=== PATIENT | male | born 1975 | race Caucasian/White ===

== ENCOUNTER 2019-12-27 07:23 | Outpatient (CLI) | payer SELFPAY, OTHER ==
[2019-12-27 14:09] LABS: #Basophils 0.1 thou/uL (0.0-0.2); #Eosinphils 0.2 thou/uL (0.0-0.7); #Lymphocytes 1.6 thou/uL (1.20-3.40); #Monocytes 0.8 thou/uL (0.11-0.59); #Neutrophils 5.6 thou/uL (1.40-6.50); %Basophils 0.8 % (0.0-1.0); %Eosinophils 2.6 % (0.0-10.0); %Lymphocytes 19.3 % (21.0-51.0); %Monocytes 9.5 % (0.0-10.0); %Neutrophils 67.9 % (42.0-75.0); Hemoglobin 18.1 g/dL (14.0-18.0); Mean Corpuscular Hemoglobin 30.9 pg (27.0-31.0); Mean Corpuscular Volume 91.1 fL (78.0-98.0); Mean Platelet Volume 7.8 fL (7.4-10.4); Platelet Count 206 thou/uL (130-400); RBC Distribution Width 11.2 % (11.5-14.5); Red Blood Cell (RBC) Count 5.84 mill/uL (4.70-6.10); White Blood Cell (WBC) Count 8.3 thou/uL (4.8-10.8)
[2019-12-27 15:02] LABS: Anion Gap 14 mmol/L (10-20); BUN (Urea Nitrogen) 32 mg/dL (8.9-20.6); Calc. Creatinine Clearance 0 mL/min (70-130); Calcium 9.5 mg/dL (7.8-10.44); Carbon Dioxide 25 mmol/L (22-29); Chloride 104 mmol/L (98-107); Estimated GFR-MDRD 70; Glucose 90 mg/dL (70-105); Potassium 4.4 mmol/L (3.5-5.1); Sodium 139 mmol/L (136-145)
--- NOTE | 2019-12-28 07:06 | EKG ---
Test Reason : Blood Pressure : / mmHG Vent. Rate : 086 BPM Atrial Rate : 086 BPM P-R Int : 162 ms QRS Dur : 092 ms QT Int : 332 ms P-R-T Axes : 071 026 042 degrees QTc Int : 397 ms Normal sinus rhythm Normal ECG No previous ECGs available Confirmed by DR. Samantha RIBERA ([id number]) on 12/28/2019 7:06:25 AM Referred By: DOMONIQUE Confirmed By:DR. Samantha RIBERA
[2019-12-28 11:54] LABS: SARS-CoV-2 MS2 Positive; SARS-CoV-2 N Gene Negative; SARS-CoV-2 S Gene Negative; SARS-CoV-2 by NAA Not Detected (NotDetected); SARS-CoV-2 orf1ab Negative
== END 2019-12-27 07:24 | disposition home or self-care (01) ==
LOC: LABBT 07:23
PROVIDERS: ATTEND Orthopaedic Surgery
DX: Z01.818 Encounter for other preprocedural examination (principal); Z20.828 Contact with and (suspected) exposure to other viral communicable diseases; M75.101 Unspecified rotator cuff tear or rupture of right shoulder, not specified as traumatic
CPT/HCPCS: 80048; 85025; 87635; 93005; 93010; U0003

== ENCOUNTER 2019-12-30 06:05 | Day surgery (SDC) | payer OTHER ==
[2019-12-28 11:55] VITALS: BMI 27.3
[2019-12-30] MEDS ORDERED: Midazolam HCl 2 mg/2 ml Vial ONE ×2 (06:37→07:10)
[2019-12-30] MEDS ORDERED: Fentanyl 100 MCG/2 ML VIAL ONE ×2 (06:38→07:10)
[2019-12-30] MEDS ORDERED: Lidocaine 1% (PF) 30 ML VIAL ONE (06:57)
[2019-12-30] MEDS ORDERED: Sodium Chloride 0.9% 10 ML ONE (06:57)
[2019-12-30] MEDS ORDERED: Ropivacaine 0.2% 550 ML 550 ML NERVE BLCK SCH (07:30)
[2019-12-30] MEDS ORDERED: Fentanyl 100 MCG/2 ML VIAL IV PRN (07:30)
[2019-12-30] MEDS ORDERED: Zolpidem Tartrate 5 MG TAB PO PRN (07:30)
[2019-12-30] MEDS ORDERED: Ondansetron PF 4 MG/2 ML Vial IVP PRN (07:30)
[2019-12-30] MEDS ORDERED: Promethazine HCl 25 MG/ML VIAL IM PRN (07:30)
[2019-12-30] MEDS ORDERED: HYDROcodone/Acetaminophen 5/325 mg Tablet PO PRN ×2 (07:30)
[2019-12-30] MEDS ORDERED: traMADol HCl 50 MG TAB PO PRN ×2 (07:30)
[2019-12-30] MEDS ORDERED: Bupivacaine/Epinephrine 0.25% 30 ML VIAL ONE (07:52)
[2019-12-30] MEDS ORDERED: SUGAMMADEX SODIUM 200 MG/2 ML VIAL ONE (09:34)
[2019-12-30] MEDS ORDERED: Ropivacaine 0.5% HCl/PF (150 MG/30 ML VIAL) ONE (10:40)
[2019-12-30] MEDS ORDERED: Ropivacaine 0.2% HCl/PF (40 MG/20 ML VIAL) ONE (10:40)
[2019-12-30] MEDS ORDERED: Lidocaine 1% PF 5 ML VIAL ONE (10:40)
[2019-12-30] MEDS ORDERED: EPHEDRINE 25 MG/5 ML SYRINGE ONE (10:40)
[2019-12-30] MEDS ORDERED: PHENYLEPHRINE-NS 100 MCG/ML 10 ML SYRINGE ONE (10:40)
[2019-12-30] MEDS ORDERED: Ondansetron PF 4 MG/2 ML Vial ONE (10:40)
[2019-12-30] MEDS ORDERED: PROPOFOL 200 MG/20 ML VIAL ONE (10:40)
[2019-12-30] MEDS ORDERED: Rocuronium Bromide 10 MG/ML (10ML VIAL) ONE (10:40)
--- NOTE | 2020-01-01 09:51 | OP ---
DATE OF PROCEDURE: 12/30/2019 PREOPERATIVE DIAGNOSES: 1. Right shoulder supraspinatus rotator cuff tear. 2. Degenerative SLAP lesion as well as associated intratendinous tearing of the biceps. POSTOPERATIVE DIAGNOSES: 1. Right shoulder supraspinatus rotator cuff tear. 2. Degenerative SLAP lesion as well as associated intratendinous tearing of the biceps. 3. Partial leading edge tear of subscapularis. PROCEDURES PERFORMED: 1. Right shoulder arthroscopy with arthroscopic rotator cuff repair. 2. Open biceps tenodesis. HOME HEALTH AIDE: Jose C Cordova PA-C. The assistant cook surgeon was present throughout the approach, fixation, and closure of the open biceps tenodesis. ESTIMATED BLOOD LOSS: Approximately, 50 mL. COMPLICATIONS: None. ANESTHESIA: He had a general anesthetic as well as a preoperative block. IMPLANTS: We used one triple-loaded titanium rotator cuff anchor. We used a 4.75 BioComposite SwiveLock for a double-row repair and we used a 7 x 23 BioComposite Bio-Tenodesis screw for biceps tenodesis. DISPOSITION: He did go to recovery room in stable condition. INDICATIONS: A 44-year-old male, who has been having problems with his right shoulder for quite some time. MRI was performed and he was found to have a full-thickness cuff tear as well as tearing of his biceps tendon. DESCRIPTION OF PROCEDURE: After all appropriate consent forms were explained and signed, Darryn was taken to the operative room and at this time was given general anesthetic. Once the level of anesthesia was appropriate, he was rolled into the left lateral decubitus position with all bony prominences were well padded. Axillary roll was placed underneath the left axilla and a barrientos bag was inflated to hold it in this position. The right arm was taken through full range of motion and was then suspended with 15 pounds of weight in standard arthroscopic fashion. The right shoulder and upper extremity were then prepped and draped in standard surgical fashion. Bony anatomical landmarks were then drawn out and at this time, the subacromial space was infiltrated with Marcaine with epinephrine. Posterior portal was then established, and the scope was placed into the shoulder joint. Anterior working portal was then made using a needle localization technique. Diagnostic arthroscopy commenced at this time. There was a leading edge tear of the subscapularis with some surrounding synovitis, this was debrided with a shaver. The supraspinatus tendon was found to be torn directly behind the biceps tendon, this was debrided at this time from the inside. This was noted to be a full- thickness tear at this time. The articular cartilage of the glenoid and humerus were in good condition. No loose bodies were noted in the axillary pouch. The superior labrum was found to be fairly atretic with some loose flaps. These were gently taken down with the shaver. There was a fair amount of synovitic change in the joint and the SERFAS energy was introduced and these areas were coagulated to prevent postop bleeding. At this time, an 18-gauge needle was introduced into the shoulder joint through the biceps tendon and a stitch was placed through the biceps tendon at this time. Arthroscopic scissors were used to cut the tendon off the superior labrum. This area was debrided with a shaver. Once this was done, we then turned our attention to the subacromial space. The scope was redirected to the subacromial space and at this time, lateral working portal was made. Diagnostic arthroscopy commenced and once removing the bursa, we confirmed full-thickness rotator cuff tear. At this time, the soft tissue was removed from the undersurface of the acromion, but no bony decompression was performed as no significant anterior inferior spur was noted. Soft tissue was removed from our greater tuberosity in the area of the tear. Shaver was introduced to gently decorticate this area. Edges were smoothed up and freshened up with a shaver at this time. We then placed a PassPort cannula laterally and our green cannula in the anterior subacromial space portal. We then placed a triple-loaded titanium anchor into the bone just off the articular surface. Once this was done, we took all 3 sets of sutures anteriorly. We then passed these through the rotator cuff using the Scorpion device in mattress fashion. The last stitch really was not indicated to pass through since the majority of the tendon had already been taken care of with the first 4 suture passes. Therefore, this last stitch was removed. At this time, we then tied our knots over our 2 passed mattress sutures, tying down the rotator cuff to the articular edge. We then placed one 4.75 BioComposite SwiveLock laterally for double row repair. This was placed by first punching and then placing the SwiveLock device. This gave us a nice repair. Hence, we did not need the extra sutures as these were removed from the center and the stitches were then cut. Pictures were taken from the posterior portal as well as the lateral portal to confirm closure of the hole. The scope was removed. Shoulder was drained at this time. A 15 blade was used to make an incision down through skin for our biceps tenodesis. Bovie was used to coagulate any brisk venous bleeding. Deltoid fascia was entered sharply and the deltoid was split in line with its fibers to get to the underlying transverse humeral ligament. This was opened up and a large amount of bloody synovitic tissue was noted in the bicipital groove. This took quite a while to remove this tissue and to get the bleeding coagulated in its entirety. In the bicipital groove, there was a large area of the tendon itself that was found to be torn and using this as our guide, we then sutured our tendon with the FiberWire suture and the intra-articular portion of the tendon and torn tendon were removed sharply and removed off the surgical field. A pin was placed into the bicipital groove. Reamer was used to ream our tunnel to a depth of 25 and a 7 x 23 BioComposite Bio- Tenodesis screw was then placed in standard fashion fixating the biceps. Sutures were tied over top of this, so this would not back out. We then thoroughly irrigated and dried our incision. The deltoid was allowed to close upon itself and a running Vicryl was used to close our deltoid fascia. 2-0 Vicryl and stitches were used to close the small incision and simple stitches were used to close our portals. At this time, a bulky sterile dressing was applied. The patient was then awakened. He was taken to recovery room in stable condition. All counts were correct at the end of the case and he did receive preoperative IV antibiotics. Job ID: [id number] [facility]
== END 2019-12-30 11:50 | disposition home or self-care (01) ==
LOC: SDC 06:05
PROVIDERS: ATTEND Orthopaedic Surgery
PROC: 0LS30ZZ Reposition Right Upper Arm Tendon, Open Approach (ICD-10-PCS; principal; 2019-12-30)
PROC: 0LQ14ZZ Repair Right Shoulder Tendon, Percutaneous Endoscopic Approach (ICD-10-PCS; principal; 2019-12-30)
PROC: 3E0T3BZ Introduction of Anesthetic Agent into Peripheral Nerves and Plexi, Percutaneous Approach (ICD-10-PCS; principal; 2019-12-30)
DX: M75.101 Unspecified rotator cuff tear or rupture of right shoulder, not specified as traumatic (principal); S46.111A Strain of muscle, fascia and tendon of long head of biceps, right arm, initial encounter; S43.431A Superior glenoid labrum lesion of right shoulder, initial encounter; G89.18 Other acute postprocedural pain; Y93.B9 Activity, other involving muscle strengthening exercises
CPT/HCPCS: A4306; C1713; J0690; J2001; J2250; J2405; J2704; J2795; J3010